=== PATIENT | female | born 1980 | race Caucasian/White ===

== ENCOUNTER 2017-11-22 08:30 | Outpatient (RCR) | payer OTHER, SELFPAY ==
--- NOTE | 2017-11-02 11:02 | HP.PTEVAL ---
Patient's Visit Information YAIMA ROSARIO is a 37 year old F referred to Physical Therapy by Butch Knight with a diagnosis of CHRONIC BILATERAL THORACIC BACK PAIN. Date of Evaluation: 10/27/17 Physical Therapist: Ramos Pérez PT, - Visit Plan Frequency: 2x /Week Duration: 4 Weeks Plan: LINETTE EX''S,MANUAL THERAPY CERVICAL-TRACTION,ICTX,US,CP,POSTURAL STRENGTHENING - Subjective Subjective: This 37 y/o female presents to physical therapy with chronic bilateral thoracic pain.Patient has h/o thoracic pain for about 10 years. Patient reports pain is at right scapular region described as tinglinh ache.Patient alos reports RUE pain to deltoid lateral region over winter. Patient has seen chiroprcator care nd manipulation past year which hasnt helped . Agravating factors sitting for long time ,driving,on computer,job demands. Easing factors moving.Patient denies weakness ,trauma. Does report alot of stress jose carlos loss of spouse. Patient interfers with quality of life and job demands/housework tasks. SOCIAL: one child ,. VOCATION: [employer] [place] - Pain Right Scapula Pain Intensity (Out of 10): 2 Pain Intensity Range: 10 - Objective POSTURE: mild foward head. PALAPTION: tender UT/LEVATOR. NEURO:mytomes intact,c/o parathesia /tingling scapular,reflexes 2/3 C5-6-7. MMT: 4/5 grossly. CERVICAL ROM: prutrusion WFL,retraction 25% limmited,flexion/extesnion WNL,lateral flexion/rotation 25% limited. THORACIC ROM: WFL. ASSESSORY MOTION: Thoracic PA hypomobile - Special Tests C/S Radiculapathy - Left Upper limb tension test: Negative C/S Radiculapathy - Right Upper limb tension test: Positive C/S Radiculapathy - Left Spurlings: Negative C/S Radiculapathy - Right Spurlings: Negative C/S Radiculapathy - Left Cervical distraction: Negative C/S Radiculapathy - Right Cervical distraction: Negative C/S Radiculapathy - Left Relief test: Negative C/S Radiculapathy - Right Relief test: Negative C/S Radiculapathy - Valsalva: Negative Cervical Sitting: Protrusion - Mechanical Response: No effect Cervical Sitting: Protrusion - Symptoms During Testing: Increases Cervical Sitting: Protrusion - Symptoms After Testing: No worse Cervical Sitting: Retraction - Mechanical Response: No effect Cervical Sitting: Retraction - Symptoms During Testing: Increases Cervical Sitting: Retraction - Symptoms After Testing: Worse Cervical Sitting: Retraction-Extension - Mechanical Response: No effect Cerv Sitting: Retraction-Extension - Symptoms During Testing: Decreases Cerv Sitting: Retraction-Extension - Symptoms After Testing: Better - Goals Goal 1:: Independant with posture for ADLS; Goal Time Frame: 4-6 Weeks Goal 2:: Independant with HEP Goal Time Frame: 4-6 Weeks Goal 3:: Patient to have full ROM cervical spine for function of recovery Goal Time Frame: 4-6 Weeks Goal 4:: Patient be d/c to prophalxis Goal Time Frame: 4-6 Weeks Goal 5:: Patient be able to perform ADL'S and sitting activities with pain. - Rehabilitation Potential Physical Therapy Diagnosis: This patient has possible cervical derrangement above elbow with poor posture ,along with chronic thoracic pain which impaires ADL'S and job demands .Symptoms decreased with posture correction and mckenzies es'x thus benifit from skilled PT. Rehabilitation Potential: Good - Anticipated Interventions Patient/Client Instruction: Educate patient on: Condition, Plan of Care For the Purpose of:: To decrease pain, To increase ROM, To improve muscle performance and motor function, To improve ability to perform ADL's, To increase tolerance to activity/condition/position, To improve gait and locomotor functions, To improve health of tissue, To decrease soft tissue restriction, To increase flexibility/ROM, To improve ability to perform tasks related to life management Therapeutic Exercise to Include: Strength training, Postural training, Flexibilty training, Linette Exercises For the Purpose of:: To decrease pain, To increase ROM, To improve muscle performance and motor function, To increase tolerance to activity/condition/position, To improve ability of physical actions for home/community/work/leisure, To improve health of tissue, To decrease soft tissue restriction, To increase flexibility/ROM, To reduce risk of recurrence, To improve ability to perform tasks related to life management Manual Therapy Techniques to Include: Mobilization Comment: CERVICAL TRACTION For the Purpose of:: To increase ROM, To improve muscle performance and motor function, To increase tolerance to activity/condition/position, To improve ability of physical actions for home/community/work/leisure, To improve health of tissue, To decrease soft tissue restriction, To increase flexibility/ROM TENS: Yes IF ES: Yes Cryotherapy (ice pack, ice massage): Yes Ultrasound (thermal/non thermal): Yes Intermittent cervical traction: Yes For the Purpose of:: To decrease pain, To improve nutrient delivery to tissue, To increase oxygenation perfusion, To improve health of tissue, To decrease soft tissue restriction Thank you for the opportunity to evaluate your patient. For Medicare and Medicare HMO plans, please review the plan of care and approve it. It will need to be FAXED BACK to us at [phone] for Medicare purposes. Please let me know if there are questions or concerns regarding this plan of care. Physician Signature: Date:
--- NOTE | 2017-12-15 12:01 | HP.PTDCNRP_ITS ---
HP - Discharge Summary (1) - Patient Information YAIMA ROSARIO was seen in my office for initial evaluation on 10/27/17. The following Plan of Care was established for this patient: Initial Frequency: 2x /Week Initial Duration: 4 Weeks - Anticipated Interventions Patient/Client Instruction: Educate patient on: Condition, Plan of Care For the Purpose of:: To decrease pain, To increase ROM, To improve muscle performance and motor function, To improve ability to perform ADL's, To increase tolerance to activity/condition/position, To improve gait and locomotor functions, To improve health of tissue, To decrease soft tissue restriction, To increase flexibility/ROM, To improve ability to perform tasks related to life management Therapeutic Exercise to Include: Strength training, Postural training, Flexibilty training, Kirill Exercises For the Purpose of:: To decrease pain, To increase ROM, To improve muscle performance and motor function, To increase tolerance to activity/condition/ position, To improve ability of physical actions for home/community/work/leisure , To improve health of tissue, To decrease soft tissue restriction, To increase flexibility/ROM, To reduce risk of recurrence, To improve ability to perform tasks related to life management Manual Therapy Techniques to Include: Mobilization Comment: CERVICAL TRACTION For the Purpose of:: To increase ROM, To improve muscle performance and motor function, To increase tolerance to activity/condition/position, To improve ability of physical actions for home/community/work/leisure, To improve health of tissue, To decrease soft tissue restriction, To increase flexibility/ROM TENS: Yes IF ES: Yes Cryotherapy (ice pack, ice massage): Yes Ultrasound (thermal/non thermal): Yes Intermittent cervical traction: Yes For the Purpose of:: To decrease pain, To improve nutrient delivery to tissue, To increase oxygenation perfusion, To improve health of tissue, To decrease soft tissue restriction This patient was last seen in our office 11/22/17. Pertinent comments regarding their Physical therapy will appear below: Patient seen for PT chronic thoracic pain for 5 visits focusing on manual therapy,posture ex's,kirill ex's with patient progressing with less pain to improve function.Patient cancell appointments doing good,met goals. At this point I will be discontinuing this patient from physical therapy. I would be happy to see this patient again in the future if found appropriate by the physician. Thank you! Ramos Pérez, PT,
== END 2017-11-22 19:00 | disposition home or self-care (01) ==
LOC: PT 08:30
PROVIDERS: Family Provider Student in an Organized Health Care Education/Training Program; PCP Student in an Organized Health Care Education/Training Program; Visit Provider Student in an Organized Health Care Education/Training Program
DX: M54.6 Pain in thoracic spine (principal); G89.29 Other chronic pain
CPT/HCPCS: 97110; 97140; 97162

== ENCOUNTER → 2019-12-13 07:27 | Outpatient (CLI) | payer OTHER, SELFPAY ==
--- NOTE | 2019-12-13 07:29 | BI_ITS ---
MAMMOGRAPHY - BILATERAL SCREENING 3-D TOMOSYNTHESIS REASON FOR EXAM: Female, 39 years old. BASELINE EXAM - NO FAM HX - NO PREV HITESH G''S PERTINENT HISTORY: No significant family history. TECHNIQUE: 2-D mammograms and 3-D Tomosynthesis of the breast (s) were performed. CAD was performed. COMPARISON: None. Baseline examination. FINDINGS: The breast composition is heterogeneously dense that can obscure small breast masses. Scattered benign calcifications are seen. No dense spiculated masses or suspicious microcalcifications are identified. No architectural distortion is identified. There is no skin thickening or retraction. BI/SCREEN MAMM (CAD) W/ERIKA BILAT IMPRESSION: No mammographic signs of malignancy. Routine yearly mammograms recommended. ASSESSMENT CATEGORY: BIRADS Category 2: Benign. A letter regarding these results will be sent to the patient by the facility within 30 days. FOLLOW UP RECOMMENDATION: Yearly follow up mammogram recommended. (A) Approximately 10% of breast cancers are not detected by mammography. A normal mammogram should not delay biopsy of a clinically suspicious abnormality. Electronically Signed: Donta Cuevas MD at 9:08 EDT , Service support ,
== END ==
PROVIDERS: PCP Student in an Organized Health Care Education/Training Program; Referring Provider Student in an Organized Health Care Education/Training Program; Visit Provider Student in an Organized Health Care Education/Training Program
DX: Z12.31 Encounter for screening mammogram for malignant neoplasm of breast (principal); N60.11 Diffuse cystic mastopathy of right breast; N60.12 Diffuse cystic mastopathy of left breast
CPT/HCPCS: 77063; 77067

== ENCOUNTER → 2022-04-30 | Outpatient (CLI) | payer OTHER, SELFPAY ==
--- NOTE | 2022-04-30 14:53 | BI_ITS ---
MAMMOGRAPHY - BILATERAL SCREENING REASON FOR EXAM: Female, 42 years old. Routine annual screening examination. PERTINENT HISTORY: Non-contributory. TECHNIQUE: Digital bilateral breast erika (3D mammographic acquisition) in the CC and MLO projections. 2-D mediolateral oblique (MLO) and craniocaudad (CC) views of both breasts were obtained. CAD: Full Field Digital Mammography with Computer Added Detection was performed. COMPARISON: Comparison is made with prior study dated 12/13/2019. FINDINGS: Breast Composition: The breasts are heterogeneously dense, which may obscure small masses. There are no dominant masses or suspicious calcifications. Stable small benign-appearing bilateral axillary vessels. No other significant abnormalities are identified. There has been no significant change since the prior study. BI/SCRN MAMM (CAD)W/ERIKA BILAT IMPRESSION: Stable bilateral screening mammogram. Yearly follow-up mammogram recommended. (A) ASSESSMENT CATEGORY: BIRADS Category 2: Benign. A letter regarding these results will be sent to the patient by the facility within 30 days. Approximately 10% of breast cancers are not detected by mammography. A normal mammogram should not delay biopsy of a clinically suspicious abnormality. [id number] Electronically Signed: Klever Pineda MD at 15:42 EST ,
== END | disposition home or self-care (01) ==
PROVIDERS: PCP Student in an Organized Health Care Education/Training Program; Visit Provider Student in an Organized Health Care Education/Training Program
DX: Z12.31 Encounter for screening mammogram for malignant neoplasm of breast (principal)
CPT/HCPCS: 77063; 77067

== ENCOUNTER → 2022-09-13 | Outpatient (CLI) | payer OTHER, SELFPAY ==
[2022-09-13 11:04] LABS: Hematocrit 42.7 % (37-47); Hemoglobin 14.4 g/dL (12.0-15.0); Mean Corp Hgb Conc 33.7 g/dL (32-36); Mean Corpuscular Hgb 29.5 pg (27.0-32.0); Mean Corpuscular Volume 87.5 fL (81-99); Mean Platelet Vol. 10.1 fl (6.2-12.0); Platelet Count 219 K/mm3 (150-450); RBC Distribution Width CV 12.7 % (11.6-14.6); RBC Distribution Width SD 41.1 fl (35.1-43.9); Red Blood Count 4.88 M/mm3 (4.2-5.4); White Blood Count 7.8 K/mm3 (4.4-11.0)
[2022-09-13 12:06] LABS: hCG Titer Quant., Serum 10747 mIU/mL (1-3)
== END | disposition home or self-care (01) ==
LOC: LAB 09:46
PROVIDERS: PCP Student in an Organized Health Care Education/Training Program; Referring Provider Obstetrics & Gynecology; Visit Provider Obstetrics & Gynecology
DX: O20.9 Hemorrhage in early pregnancy, unspecified (principal); Z3A.00 Weeks of gestation of pregnancy not specified
CPT/HCPCS: 36415; 84702; 85027; 86850; 86900; 86901

== ENCOUNTER → 2022-09-15 | Outpatient (CLI) | payer OTHER, SELFPAY ==
[2022-09-15 11:39] LABS: hCG Titer Quant., Serum 2663 mIU/mL (1-3)
== END | disposition home or self-care (01) ==
LOC: LAB 09:35
PROVIDERS: PCP Student in an Organized Health Care Education/Training Program; Referring Provider Obstetrics & Gynecology; Visit Provider Obstetrics & Gynecology
DX: O20.9 Hemorrhage in early pregnancy, unspecified (principal); Z3A.00 Weeks of gestation of pregnancy not specified
CPT/HCPCS: 36415; 84702

== ENCOUNTER 2023-07-14 05:00 | Inpatient (IN) | payer OTHER, SELFPAY ==
--- NOTE | 2023-07-13 17:12 | PCM.HP.BLA ---
History and Physical Date of Admission: 07/14/23 Pre-Op History and Physical ? HPI: The patient is a 43 year old female presenting for pre-operative visit. She is scheduled for , for repeat cs on 07/14/23. Procedure discussed along with risks, benefits and complications. Other alternatives discussed for management. Consent form signed? Yes. ? ? PAST MEDICAL HISTORY PAST MEDICAL HISTORY Diagnosis Date ? Atypical nevi ? ? multiple abnormal ? Diarrhea ? ? travel induced IBS ? Fracture ? ? [place] ? Maternal iron deficiency anemia complicating , third trimester 06/03/2023 ? Seasonal allergies ? ? spring/fall ? ? PAST SURGICAL HISTORY PAST SURGICAL HISTORY Procedure Laterality Date ? DELIVERY ONLY ? 10/01/2015 ? , low transverse ? LASIK PROCEDURE ? ? ? Both Eyes ? PAST SURGICAL HISTORY OF ? ? ? MOLE REMOVAL/Several/20+ (17 atypical) ? PAST SURGICAL HISTORY OF Right 12/13/2021 ? application external fixator tibia ? PAST SURGICAL HISTORY OF Right 12/21/2021 ? tibia ? REM LESION TRUNK,ARM,LEG 0.6 -1.0CM ? 10/25/2012 ? Exc. shave bx sites back x 2 ? UNSPECIFIED ORAL SURGERY PROCEDURE, BY REPORT ? ? ? WISDOM TEETH REMOVED ? ? ? CURRENT MEDICATIONS Current Outpatient Medications Medication Sig Dispense Refill ? ferrous sulfate (IRON ORAL) Take by mouth. ? ? ? BABY ASPIRIN ORAL Take by mouth. ? ? ? CALCIUM ORAL Take by mouth. ? ? ? prental multivitamin 27 mg iron- 800 mcg tablet Take 1 tablet by mouth once daily. ? ? ? No current facility-administered medications for this visit. ? ? ALLERGIES: Patient has no known allergies. ? PERSONAL HISTORY: SOCIAL HISTORY Social History ? Tobacco Use ? Smoking status: Never ? Smokeless tobacco: Never Vaping Use ? Vaping Use: Never used Substance Use Topics ? Alcohol use: Yes ? ? Comment: occasional ? Drug use: No ? FAMILY HISTORY: FAMILY HISTORY FAMILY HISTORY Problem Relation Age of Onset ? Hypertension Mother ? ? Lipids Mother ? ? Diabetes Mother ? ? Stroke Mother ? ? Prostate Cancer Father ? ? No Known Problems Sister ? ? Pancreatic Cancer Maternal Grandmother ? ? of pancreatic cancer ? Breast Cancer Maternal Grandmother ? ? Coronary Artery Disease Maternal Grandfather ? ? of [place] ? Allergies Paternal Grandmother ? ? Asthma Paternal Grandmother ? ? Adult On-Set ? other (Macular Degeneration) Paternal Grandmother ? ? Coronary Artery Disease Paternal Grandfather ? ? ? No Known Problems Daughter ? ? ? REVIEW OF SYMPTOMS: negative except as noted above PHYSICAL EXAMINATION: ? VITALS: Blood pressure 128/78, weight 196 lb 6.4 oz (89.1 kg), last menstrual period 10/14/2022. ? GENERAL: The patient is well nourished, well hydrated in no acute distress. , The patient is oriented to time, place, and person. NECK: Supple.full range of motion Abdomen: Non tender, Gravid. No RUQ pain ? IMPRESSION: @ 38.1 weeks- scheduled repeat cs at 39 weeks ? PLAN: repeat cs at 39 weeks ? Pt has been counseled on risks/benefits and alternatives of surgery including but not limited to anesthesia, bleeding, infection, injury to pelvic structures including bowel, bladder, ureters and vessels. Pt wishes to proceed with surgery at this time. Risk of transfusion reviewed ? Pre and post op instructions reviewed ? I have reviewed and updated past medical and surgical history, medications and allergies Deborah Smith MD ?9:54 AM Routine Office Visit on 07/08/2023 Routine Office Visit on 07/08/2023 Note shared with patient
[2023-07-14] VITALS (22 sets, daily range): BP systolic 102–135; BP diastolic 57–97; PULSE 63–100; RESP 16; TEMP 36.1–36.8; O2SAT 95–99; BMI 34.0
[2023-07-14] MEDS: Lactated Ringers 1,000 ML 999 ML IV (05:25)
[2023-07-14] MEDS: Acetaminophen 500 MG Tablet 1000 MG PO ×4 (05:40→23:59)
[2023-07-14 05:41] LABS: Absolute Lymphocyte Count 1.46 X10^3/uL (0.83-4.51); Absolute Neutrophil Count 7.8 X10^3/uL (2.0-7.7); Basophil# 0.03 X10^3/uL; Basophil% 0.3 % (0-1); Hemoglobin 11.7 g/dL (12.0-15.0); Lymphocyte # 1.46 X10^3/ul (0.83-4.51); Lymphocyte % 14.3 % (19-41); Mean Corp Hgb Conc 32.5 g/dL (32-36); Mean Corpuscular Hgb 28.3 pg (27.0-32.0); Mean Platelet Vol. 11.2 fl (6.2-12.0); Monocyte# 0.75 X10^3/uL; Monocyte% 7.3 % (0-10); NRBC Flagged by Analyzer 0 % (0-5); Neutrophil # 7.79 X10^3/uL (2.7-7.7); Neutrophil % 76.1 % (47-70); POSITIVE COUNT YES; RBC Distribution Width SD 47.8 fl (35.1-43.9); Red Blood Count 4.14 M/mm3 (4.2-5.4); White Blood Count 10.2 K/mm3 (4.4-11.0)
[2023-07-14 05:43] LABS: Differential Indicated SCAN CRITERIA MET
[2023-07-14 06:21] LABS: Platelet Estimate ADEQUATE (ADEQ)
[2023-07-14] MEDS: Lactated Ringers 1,000 ML 100 ML IV ×2 (06:31→11:36)
[2023-07-14] MEDS: Sodium Citrate/Citric Acid 30 ML UDC PO (07:12)
[2023-07-14] MEDS: Cefazolin 2 GM in 0.9% Normal Saline (100mL Bag) 100 ML IV (07:17)
--- NOTE | 2023-07-14 08:06 | OP.PCM_ITS ---
Details Operative Information Date of Procedure: 07/14/23 Pre-Operative Diagnosis: AMA, 39 weeks, Previous CS Post-Operative Diagnosis: Same, live female infant Indications for : Repeat Elective Classification: Scheduled Procedure Type: low transverse manager personnel selection #1: Lauren Maddox Type of Anesthesia: Spinal Antibiotic Given: Ancef 2 grams IV x1 Drain: Vazquez to straight drain Estimated Blood Loss: 600 Fluids Replaced: 1000 Procedure Start Time: 07:37 Procedure Stop Time: 08:07 Time of Delivery: 07:41 Findings Description of Procedure: After informed consent was obtained the patient was taken the operating room she was given spinal anesthesia. She was then placed in the supine position. She was prepped and draped in the normal sterile fashion. Anesthesia was found to be adequate. At this time a Pfannenstiel skin incision was made with a knife was carried down to the underlying layer of the fascia. The fascial incision was then extended laterally using curved Porter scissor. Tensions was then turned to the superior aspect of the fascial edge was grasped with 2 straight [place] clamps tented up and the rectus muscle dissected off sharply using curved Porter scissor. Rectus muscles were then in the midline bluntly and peritoneum was entered bluntly. Gentle opposing traction was placed. At this time the vesicouterine peritoneum was identified. Scalpel was used to make a uterine incision in a low transverse fashion. The uterus was then entered bluntly gentle opposing traction was placed to extend this incision. Membranes were ruptured clear. Infant's head was brought to the uterine incision was delivered atraumatically. delayed cord clamping performed. Cord was clamped and cut was handed to the waiting nursery team. Terminal meconium noted. At this time due to meconium gloves were changed. The Placenta was removed from the uterus. The uterus was then removed from the abdominal cavity. The uterus was cleared of all clots and debris using a lap. At this time the uterine incision was reapproximated using #1 Vicryl in a running locked fashion. Hemostasis was appreciated. Posterior cul-de-sac was then cleared of all clots and debris. Uterus was placed back in the abdominal cavity. Gutters were cleared of all clots and debris. Uterine incision was reevaluated and noted to be of excellent hemostasis. At this time the peritoneum and muscle were grasped with Kellys reapproximated using #2 Vicryl suture in a running fashion. Fascia was then reapproximated using #1 Vicryl in a running fashion. Subcu layer was irrigated with NS and reapproximated with #2 0 plain gut suture in an interrupted fashion. Subcu layer was closed using 4-0 Monocryl in a subcu fashion. Dry sterile dressing was applied. Instrument lap needle count correct ?2. Anticipated normal postoperative course. Presentation: Positive for Vertex Amniotic Membrane Rupture Type: Artificial Amniotic Fluid Description: Clear Placental Delivery Description: Manual Removal Placenta Disposition: [facility] Cord Vessel Description: 3 Vessels Cord Entanglement: None Infant A Gender: Female (1 minute): 9 (5 minute): 9 Delayed Cord Clamping: Yes Complications Risks of Surgery Discussed w/Patient: Bleeding, Anesthesia Risks, Infection, Need for Future C-Sections and Injury to surrounding structure(s) including bowel and bladder Complications: none
[2023-07-14] MEDS: Oxytocin 15 Units/NS 250ml 15 UNITS/250 ML IV.SOLN 83 UNITS IV (08:20)
[2023-07-14 08:27] LABS: Syphilis Antibodies Non-reactive
[2023-07-14] MEDS: Ketorolac 30 MG/ML Syringe IV ×3 (08:58→21:12)
[2023-07-14] MEDS: 0.9% Saline Lock 10 ML Syringe IV (08:58)
[2023-07-14] MEDS: Enoxaparin 40 MG/0.4 ML Syringe SC (21:12)
[2023-07-15 00:01] VITALS: BP 122/73; PULSE 92; RESP 16; TEMP 36.4; O2SAT 96
[2023-07-15] MEDS: Ketorolac 30 MG/ML Syringe IV (02:44)
[2023-07-15] MEDS: 0.9% Saline Lock 10 ML Syringe IV (02:44)
[2023-07-15 02:55] VITALS: BP 107/68; PULSE 80; RESP 16; TEMP 36.3; O2SAT 98
[2023-07-15] MEDS: Acetaminophen 500 MG Tablet 1000 MG PO ×4 (06:46→23:52)
[2023-07-15 06:56] LABS: Hematocrit 33.2 % (37-47); Hemoglobin 10.5 g/dL (12.0-15.0); Mean Corp Hgb Conc 31.6 g/dL (32-36); Mean Corpuscular Hgb 27.9 pg (27.0-32.0); Mean Corpuscular Volume 88.1 fL (81-99); Mean Platelet Vol. 11.2 fl (6.2-12.0); Platelet Count 174 K/mm3 (150-450); RBC Distribution Width CV 15.1 % (11.6-14.6); RBC Distribution Width SD 48.9 fl (35.1-43.9); Red Blood Count 3.77 M/mm3 (4.2-5.4)
--- NOTE | 2023-07-15 08:24 | PCM.PN.OB ---
Subjective Subjective Pt doing well. Ambulating and voiding without difficulty. Tolerating a regular diet without nausea or vomiting. Pain is well controlled. She denies lightheadedness, dizziness, CP, SOB, leg pain. Lochia normal. . Objective Data Objective Data Vital Signs: Vital Signs Temp Pulse Resp BP Pulse Ox O2 Del Method 97.4 F L 80 16 107/68 98 Room Air 07/15/23 02:55 07/15/23 02:55 07/15/23 02:55 07/15/23 02:55 07/15/23 02:55 07/15/23 02:55 Oxygen Delivery Method Room Air Weight: 198 lb 3.129 oz Body Mass Index (BMI) 34.0 Intake & Output: Intake and Output for Last 24 Hours 07/13/23 07/14/23 07/15/23 23:59 23:59 23:59 Intake Total 2496.67 / 2496.67 Output Total 1600 / 1600 1150 / 1150 Balance 896.67 / 896.67 -1150 / -1150 Lab / Micro Data 07/15/23 06:44 Labs: Laboratory Results - last 24 hr 07/14/23 05:20: Syphilis Total Ab Non-reactive 07/15/23 06:44: WBC 9.0, RBC 3.77 L, Hgb 10.5 L, Hct 33.2 L, MCV 88.1, MCH 27.9, MCHC 31.6 L, RDW Std Deviation 48.9 H, RDW Coeff of Pelon 15.1 H, Plt Count 174, MPV 11.2 Micro: Microbiology 07/14/23 06:00 Genital vaginal Chlamydia trachomatis (PCR) - Final 07/14/23 06:00 Genital vaginal Neisseria gonorrhoeae (PCR) - Final Physical Exam Const alert and no apparent distress General Appearance: comfortable HEENT normocephalic Resp normal respiratory effort GI soft to palpation, non-tender and non-distended GI Narrative: Dressing c/d/i Extremity normal to inspection and no calf tenderness Assessment & Plan (1) Delivery by section: PLAN: POD#1 s/p C/S. Pt doing well. Pain controlled. without issues at this time. Routine post op care. Anticipate discharge tomorrow.
[2023-07-15] MEDS: Ibuprofen 600 MG Tablet PO ×3 (08:57→20:05)
[2023-07-15] MEDS: Senna/Docusate Sodium 1 Tablet PO (08:58)
[2023-07-15 10:00] VITALS: BP 108/69; PULSE 76; RESP 16; TEMP 36.3
--- NOTE | 2023-07-15 10:23 | CASEMGMT ---
Social Work Labor and Delivery Unit Date/Time of referral: 07/14/23, 11:23am Referred by: Dr. Deborah Powers Date/Time of assessment: 07/15/23, 10am Reason for referral: Grief/loss/bereavement, lost of first in farming accident, blue episode w/baby this deliver History obtained from: MOB, FOB Household composition: FOB, MOB, MOB's daughter from first marriage, and now baby Sabrina Corral Guardians of baby: MOB and FOB Medical History: MOB--high cholesteral, high blood pressure, seasonal allergies, anemia, fatty liver disease. baby: Baby Sabrina Corral born 07/14/[birth year], 7:41am, Apgars 9 and 9 at one and five minutes, 3.555kg at Educational Status: MOB, has two master's degrees in education, FOB bachelor's degree Financial Status: No concerns. 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 MOB plans to return to work after six weeks, and then will be off for the summer. Infant supplies: They have all needed supplies including bassinet, car seats, clothing, diapers, wipes. MOB is breast feeding. Childcare/Caregivers: FOB's mother, FOB and MOB's siblings Transportation: 2 vehicles Programs/Agencies involved: None Children's Services/Legal issues: None Behavioral Health issues: MOB and FOB--both report no history of mental health diagnoses. Substance abuse: Both MOB and FOB report no history of substance abuse. No tox screens completed on MOB or baby this admission. Family/Social Stressors: None reported Support systems: FOB's mother, FOB and MOB's siblings Depression and Anxiety/Shaken Baby/Safe Sleeping/Help Me Grow/[facility] Resources/Mental Health resources/mental health hotlines: SW reviewed and gave resources for all of thes topics. SW reviewed in particular information on depression and anxiety--warning signs and what to do if having symptoms. SW did suggest to MOB if having symptoms to reach out to physician or [employer], as sometimes a short term mood enhancer would be prescribed. SW also did provide a list of mental health agencies should short term counseling be helpful. MOB and FOB state understanding. Assessment: FOB and MOB spoke w/SW, answered all questions. SW spoke w/them about an incident that happened yesterday when the baby was feeding and turned dusky. They explained to SW that the baby was feeding and her nose was blocked, normally the baby will break the latch but she didn't so became dusky. They are now aware of this and know how to manage it should it happen again. FOB explained the baby was not even an hour old when this happened, and MOB states that the staff here said the baby was just not regulated yet. They are not concerned about managing this situation should it occur again, though both MOB and FOB do not anticipate it happening again. While SW in room MOB was starting to breast feed the baby, holding the baby and appropriate in care. SW did mention awareness of situation w/first . MOB did not speak about it however, and when asked about after the first baby, she states she was fine. She explains that her feelings after her first daughter was born was all normal. MOB did not elaborate on this. MOB and FOB both seem appropriate w/SW and MOB appropriate in care of baby. Plan: Baby to go home w/family at discharge, no other social service needs requested or indicated at this time. HOMERO Armstrong
[2023-07-15 14:15] VITALS: BP 104/57; PULSE 64; RESP 16; TEMP 36.3
[2023-07-15 20:05] VITALS: BP 126/65; PULSE 82; RESP 16; TEMP 37.1; O2SAT 97
[2023-07-15] MEDS: Enoxaparin 40 MG/0.4 ML Syringe SC (20:05)
[2023-07-16] MEDS: Ibuprofen 600 MG Tablet PO (02:03)
[2023-07-16 02:04] VITALS: BP 135/76; PULSE 76; RESP 16; TEMP 36.4; O2SAT 100
[2023-07-16] MEDS: Acetaminophen 500 MG Tablet 1000 MG PO (05:47)
--- NOTE | 2023-07-16 06:55 | PCM.PN.OB ---
Subjective Subjective Patient is doing well. Pain is well-controlled. She is ambulating and voiding without difficulty. Tolerating a regular diet without nausea or vomiting. She denies lightheadedness, dizziness, chest pain, shortness of breath, leg pain. Objective Data Objective Data Vital Signs: Vital Signs Temp Pulse Resp BP Pulse Ox O2 Del Method 97.5 F L 76 16 135/76 H 100 Room Air 07/16/23 02:04 07/16/23 02:04 07/16/23 02:04 07/16/23 02:04 07/16/23 02:04 07/16/23 02:04 Oxygen Delivery Method Room Air Weight: 198 lb 3.129 oz Body Mass Index (BMI) 34.0 Intake & Output: Intake and Output for Last 24 Hours 07/14/23 07/15/23 07/16/23 23:59 23:59 23:59 Intake Total 2496.67 / 2496.67 Output Total 1600 / 1600 1150 / 1150 Balance 896.67 / 896.67 -1150 / -1150 Lab / Micro Data 07/15/23 06:44 Labs: Laboratory Results - last 24 hr 07/15/23 06:44: WBC 9.0, RBC 3.77 L, Hgb 10.5 L, Hct 33.2 L, MCV 88.1, MCH 27.9, MCHC 31.6 L, RDW Std Deviation 48.9 H, RDW Coeff of Pelon 15.1 H, Plt Count 174, MPV 11.2 Micro: Microbiology 07/14/23 06:00 Genital vaginal Chlamydia trachomatis (PCR) - Final 07/14/23 06:00 Genital vaginal Neisseria gonorrhoeae (PCR) - Final Physical Exam Const alert and no apparent distress General Appearance: comfortable HEENT normocephalic Resp normal respiratory effort GI soft to palpation and non-distended GI Narrative: ATTP, dressing c/d/i Extremity no calf tenderness Extremity Narrative: trace edema bilaterally Assessment & Plan (1) Delivery by section: PLAN: The patient is postoperative day 2 from a repeat section. She is doing well and desires discharge. She is meeting milestones for discharge. Discharge instructions reviewed.
--- NOTE | 2023-07-16 07:00 | DCINST_ITS ---
Discharge Instructions Diet Discharge Diet: No restrictions Activity Discharge Activity: May Drive (once you are no longer taking pain medication, and once you can slam on a brake or turn a steering wheel sharply) May resume sexual activity in: 6 weeks Ice area for (Minutes): 15 Weight Bearing Status: Weight bearing as tolerated Lifting Restrictions: nothing heavier than baby Dressing / Incision Call your doctor if your incision/area has: Continuous Slow Oozing, Sudden Increased Bleeding, Increased Pain/ Swelling, Increased Redness, Foul Smelling Discharge and Swelling at the incision site Call your doctor if you observe: Fever of 101 or Higher, Coldness, Increased Pain, Numbness or Tingling, Change in Color, Inability to urinate, Inability to have a bowel movement, Using more than 1 pad per hour, Shortness of breath, Dizziness, Fainting spells, Swelling in the ankles, Chest pain, Prolonged hicc upping, Increased palpitations (irregular heartbeat), Calf discomfort and Uncontrolled pain Suture Line Care: Avoid Pulling/Pushing and Avoid Pinching/Bending Remove Dressing in: 2 days Cleanse incision/area with: Soap & Water Follow Up Care Please Follow Up With: Deborah Powers MD When: 1 week incision check 6 weeks visit Test Results: Test results from this visit will be discussed in further detail at your follow- up appointment, if applicable. Discharge Plan Admission Admit Date/Time: 07/14/23 05:00 Primary Reason for Your Visit: delivery Attending Provider: Deborah Powers Primary Care Provider: Butch Knight Instructions Patient Instructions: After a Discharge Orders/Prescriptions Prescriptions: New oxycodone-acetaminophen [Percocet] 5-325 mg tablet 1 tab PO Q6H PRN (Reason: pain) 7 Days Qty: 5 0RF ibuprofen 600 mg tablet 600 mg PO Q6H PRN (Reason: pain) Qty: 30 0RF docusate sodium [Colace] 100 mg capsule 100 mg PO DAILY Qty: 30 0RF Continued Prenatabs FA 1 TABLET tablet 1 tab PO DAILY ferrous sulfate [iron] 325 mg (65 mg iron) tablet 325 mg PO DAILY Discontinued aspirin 81 mg capsule 81 mg PO DAILY Referrals / Follow Up: Butch Knight DO [Primary Care Provider] - Disposition Disposition (needs filled in before D/C Order can be placed): Home, Self Care
--- NOTE | 2023-07-16 07:01 | PCM.DC.SUM ---
Providers Date of Admission: 07/14/23 Date of Discharge: 07/16/23 Primary Care Physician: Dr. Butch Knight DO Reason For Visit: REPEAT Diagnosis Discharge Diagnosis (1) Delivery by section: Status: Acute Plan: The patient is postoperative day 2 from a repeat section. She is doing well and desires discharge. She is meeting milestones for discharge. Discharge instructions reviewed. Medications at Discharge Home Medications vits,calcium no.78-iron fumarate-folic acid 29 mg-1 mg tablet (Prenatabs FA) 1 tab PO DAILY 10/01/15 ferrous sulfate 325 mg (65 mg iron) tablet (iron) 325 mg PO DAILY anemia 07/14/23 docusate sodium 100 mg capsule (Colace) 100 mg PO DAILY constipation #30 caps 07/16/23 ibuprofen 600 mg tablet 600 mg PO Q6H PRN pain #30 tabs 07/16/23 oxycodone-acetaminophen 5 mg-325 mg tablet (Percocet) 1 tab PO Q6H PRN pain 7 days #5 tabs 07/16/23 Hospital Course Operations section Summary of Care Provided Minutes Spent on Discharge: 15 Hospital Course: Patient presented for a scheduled repeat section. See operative report for details. On postoperative day 2 her pain was well-controlled, she was ambulating and voiding without difficulty, and pain was well-controlled. She was discharged home in good condition. Less than 30 minutes was spent on discharging the patient. Weight / BMI Weight Weight: 198 lb 3.129 oz Body Mass Index (BMI) 34.0 ABG / Lab / Microbiology Data 07/15/23 06:44 Microbiology: Microbiology 07/14/23 06:00 Genital vaginal Chlamydia trachomatis (PCR) - Final 07/14/23 06:00 Genital vaginal Neisseria gonorrhoeae (PCR) - Final D/C Instructions Discharge Diet: No restrictions May resume sexual activity in: 6 weeks Ice area for (Minutes): 15 Weight Bearing Status: Weight bearing as tolerated Call your doctor if your incision/area has: Continuous Slow Oozing, Sudden Increased Bleeding, Increased Pain/ Swelling, Increased Redness, Foul Smelling Discharge and Swelling at the incision site Call your doctor if you observe: Fever of 101 or Higher, Coldness, Increased Pain, Numbness or Tingling, Change in Color, Inability to urinate, Inability to have a bowel movement, Using more than 1 pad per hour, Shortness of breath, Dizziness, Fainting spells, Swelling in the ankles, Chest pain, Prolonged hiccupping, Increased palpitations (irregular heartbeat), Calf discomfort and Uncontrolled pain Suture Line Care: Avoid Pulling/Pushing and Avoid Pinching/Bending Cleanse incision/area with: Soap & Water Please Follow Up With: Deborah Powers MD When: 1 week incision check 6 weeks visit Meaningful Use Info Meaningful Use Diagnoses (Choose all that apply): None applicable Discharge Plan Admission Admit Date/Time: 07/14/23 05:00 Primary Reason for Your Visit: delivery Attending Provider: Deborah Powers Primary Care Provider: Butch Knight Instructions Patient Instructions: After a Discharge Orders/Prescriptions Prescriptions: New oxycodone-acetaminophen [Percocet] 5-325 mg tablet 1 tab PO Q6H PRN (Reason: pain) 7 Days Qty: 5 0RF ibuprofen 600 mg tablet 600 mg PO Q6H PRN (Reason: pain) Qty: 30 0RF docusate sodium [Colace] 100 mg capsule 100 mg PO DAILY Qty: 30 0RF Continued Prenatabs FA 1 TABLET tablet 1 tab PO DAILY ferrous sulfate [iron] 325 mg (65 mg iron) tablet 325 mg PO DAILY Discontinued aspirin 81 mg capsule 81 mg PO DAILY Referrals / Follow Up: Butch Knight DO [Primary Care Provider] - Disposition Disposition (needs filled in before D/C Order can be placed): Home, Self Care
[2023-07-16 08:15] VITALS: BP 128/69; PULSE 82; RESP 16; O2SAT 98
== END 2023-07-16 08:50 | disposition home or self-care (01) | DRG 788 ==
PROVIDERS: Admitting Provider Obstetrics & Gynecology; PCP Student in an Organized Health Care Education/Training Program; Referring Provider Obstetrics & Gynecology; Visit Provider Obstetrics & Gynecology
PROC: 10D00Z1 Extraction of Products of Conception, Low, Open Approach (ICD-10-PCS; CPT 59514; principal; 2023-07-14 07:00)
DX: O34.211 Maternal care for low transverse scar from previous cesarean delivery (principal); D50.9 Iron deficiency anemia, unspecified; Z37.0 Single live birth; Z3A.39 39 weeks gestation of pregnancy; O99.02 Anemia complicating childbirth
CPT/HCPCS: 59050; 85025; 85027; 86780; 86850; 86900; 86901; 87491; 87591; 99221; J7120; A4216; G0378; J2405

== ENCOUNTER → 2024-02-14 | Outpatient (CLI) | payer OTHER, SELFPAY ==
--- NOTE | 2024-02-14 13:42 | US_ITS ---
STUDY: ULTRASOUND BREAST - LEFT REASON FOR EXAM: Female, 44 years old. Palpable lump left breast. Patient is breast-feeding. TECHNIQUE: Axial and longitudinal images of the LEFT breast were performed with a high resolution ultrasound transducer. # OF IMAGES: 19 COMPARISON: None. FINDINGS: LEFT Breast: The upper outer quadrant of the left breast was examined with ultrasound. No sonographic abnormality is seen. US/Breast Limited Unilateral IMPRESSION: No sonographic abnormality is seen. ASSESSMENT CATEGORY: BIRADS Category 1: Negative. A letter regarding these results will be sent to the patient by the facility within 30 days. Electronically Signed: Klever Pineda MD at 10:37 EDT ,
== END | disposition home or self-care (01) ==
LOC: OPUS 13:41
PROVIDERS: PCP Student in an Organized Health Care Education/Training Program; Referring Provider Obstetrics & Gynecology; Visit Provider Obstetrics & Gynecology
DX: N61.0 Mastitis without abscess (principal); N63.20 Unspecified lump in the left breast, unspecified quadrant
CPT/HCPCS: 76642